=== PATIENT | female | born 1990 | race African-American/Black ===

== ENCOUNTER 2016-10-25 21:11 | Observation (INO) | payer OTHER ==
[2016-10-25] MEDS ORDERED: PREN-96 PO (21:45)
[2016-10-25] MEDS ORDERED: FERR1TAB36 PO (21:45)
[2016-10-25 21:53] LABS: Urine Bilirubin Negative (Negative); Urine Blood TRACE /uL (Negative); Urine Color Yellow (Yellow); Urine Glucose Normal (Normal); Urine Ketone Negative (Negative); Urine Mucus FEW (None Seen); Urine Nitrite Negative (Negative); Urine RBC 5 /hpf (0 - 4); Urine Squamous Epithelial Cell FEW /hpf (<5); Urine Urobilinogen Normal (Negative); Urine pH 6.5 (5.0-8.0)
[2016-10-25 22:31] LABS: Basophils # (auto) 0 uL; Basophils % (auto) 0.1 % (0.0-2.0); CONDITION Y; Eosinophils # (auto) 0.1 uL; Eosinophils % (auto) 0.7 % (0.0-7.0); Hematocrit 25.9 % (36.0-46.0); Hemoglobin 8.8 g/dL (12.2-16.2); Lymphocytes # (auto) 1.7 uL; Mean Corpuscular Hemoglobin 31.7 pg (28.0-32.0); Mean Corpuscular Hgb Conc. 33.8 g/dL (32.0-36.0); Mean Corpuscular Volume 93.8 fL (80.0-100.0); Mean Platelet Volume 7.4 fL (7.4-10.4); Monocytes # (auto) 0.6 uL; Monocytes % (auto) 7.6 % (0.0-12.0); Neutrophils # (auto) 5.3 uL; Neutrophils % (auto) 69.6 % (37.0-80.0); Platelet Count (auto) 258 10^3/uL (140-450); Red Cell Distribution Width 15.1 % (11.6-16.0); White Blood Cell 7.7 10^3/uL (4.4-10.8)
[2016-10-25 22:54] LABS: INR 0.95 (0.9-1.15); Partial Thromboplastin Time 27.9 sec (22.64-33.71); Prothrombin Time 10.3 sec (9.37-12.3)
[2016-10-25 23:00] LABS: Albumin 2.8 g/dL (3.4-5.0); BUN/Creatinine Ratio 9.4; Bilirubin, Total 0.3 mg/dL (0.2-1.0); Calcium 8.7 mg/dL (8.5-10.1); Potassium 3.6 mmol/L (3.5-5.1); Total Protein 6.6 g/dL (6.4-8.2)
== END 2016-10-25 23:23 | disposition home or self-care (01) | DRG 566 ==
LOC: LDRP 21:11
PROVIDERS: ADMIT Obstetrics & Gynecology; ATTEND Obstetrics & Gynecology
DX: O26.893 Other specified pregnancy related conditions, third trimester (principal); R10.2 Pelvic and perineal pain; R51 Headache; Z3A.39 39 weeks gestation of pregnancy
CPT/HCPCS: 36415; 59025; 76818; 80053; 80307; 81001; 81002; 84550; 85025; 85379; 85610; 85730; G0378